=== PATIENT | male | born 1970 | race Caucasian/White ===

== ENCOUNTER 2016-03-03 17:20 | Emergency (ER) | payer OTHER ==
[~2016-03-03] VITALS: Ht 170.2 cm; Wt 67.4 kg
[~2016-03-03 17:20] MED LIST: ANT125 PO; SUMA6INJ IM; VERA240T21 PO
[2016-03-03 17:28] VITALS: TEMP 37; Ht 170.2 cm; Wt 67.4 kg
[2016-03-03] MEDS ORDERED: ACET-1311 PO (17:36)
[2016-03-03] MEDS ORDERED: MoRPHine SULFATE 10 MG/ML CARP/VIAL IM STA (17:57)
[2016-03-03] MEDS ORDERED: KETOROLAC TROMETHAMINE 60 MG/2 ML VIAL IM STA (17:57)
[2016-03-03] MEDS ORDERED: PROMETHAZINE HCL INJ 25 MG/ML 1 ML VIAL IM STA (17:57)
--- NOTE | 2016-03-03 18:03 | EMERGENCY ROOM VISIT NOTE ---
ED Visit Note First contact with patient: 17:35 CHIEF COMPLAINT: Migraine headache since 0100. HISTORY OF PRESENT ILLNESS: Patient is a 45-year-old white male with long- standing history of migraine headaches who presents to emergency department for evaluation of a migraine that started at 1:00 this morning. He states he was laying in bed when it started. He was unable to sleep due to the discomfort. He tried taking Tylenol for his headache without relief. He is out of his Imitrex. He describes a pounding, bitemporal headache that he rates a 10/10. He has associated nausea and photophobia. He denies vomiting. The patient states the migraine is similar to their typical migraines. He denies any recent cold or upper respiratory symptoms, fever or chills. No weakness or numbness of the extremities. There is no difficulty with coordination, balance, speech or vision. No trauma to the head and no neck pain. This is not the worst headache of the life and is similar to previous migraines. Previous imaging studies including CAT scans and MRIs of the brain have been normal. He reports that he recently reestablished insurance and believes that he is scheduled to see Dr. Hope later this month. REVIEW OF SYSTEMS: Review of systems as per HPI. All other systems reviewed were negative. 10 systems reviewed. PMH: Electronic medical records are reviewed and summarized as above/below. See Problem List. SOCIAL HISTORY: Patient is a 44-year-old male who lives at home with family. PHYSICAL EXAM: Vital Signs: Reviewed Nurse's notes. General Appearance: Patient is an uncomfortable-appearing 45-year-old white male who is awake and alert and laying in a darkened room in moderate distress due to his headache. Eyes: Pupils equal round reactive to light extraocular muscles are intact, no proptosis, mild photophobia ENT: Oropharynx is clear, mucous membranes are moist, tympanic membranes are clear bilaterally, no sinus or dental tenderness Neck: Supple, no cervical lymphadenopathy, no meningismus Heart: Regular rate and rhythm, S1 and S2 Lungs: Clear to auscultation bilaterally, no wheezes Rales or rhonchi, no increased work of breathing Abdomen: Soft nontender nondistended. Normal active bowel sounds. No rebound. No guarding. Back: No midline tenderness to palpation. : No CVA tenderness to palpation. Skin: Warm, no diaphoresis, no rashes. Extremities: No cyanosis, clubbing, or edema Neurologic: Patient is awake alert, and oriented x 3. Cranial nerves 2-12 are grossly intact. Motor 5 out of 5 strength bilateral upper extremities and lower extremities. No gross sensory deficits. Reflexes are 2+ throughout. EMERGENCY DEPARTMENT COURSE: The patient was seen and examined as above. His old records are reviewed. He is seen in the emergency department infrequently, he had only 6 visits for migraine headaches last calendar year. He is not on a treatment plan for his migraines. Prior treatment regimens were reviewed. The patient states that he does not like Dilaudid as he states that he feels like when the medication wears off his headache returns and is worse. Patient received 10 mg morphine, 60 mg Toradol, and 25 mg Phenergan intramuscularly which is a regimen that has worked well for him in the past. He was observed in the emergency department for roughly 30 minutes, and reassessed and reported his headache with a 3/10. He felt well enough to be discharged home to rest. He presents today with a migraine that seems typical of his usual migraine phenomenon. He has no worrisome physical exam findings to indicate any further workup including neuro imaging at this time. The differential diagnosis includes acute intracranial bleed, meningitis, encephalitis, mass or mass effect , sinusitis, infection, tumor, headache, temporal arteritis and carbon monoxide exposure, and migraine. The patient was discharged home in stable condition with a family member driving. Problem List Medical Problems: (1) Abdominal pain Status: Resolved (2) Acute exacerbation of chronic low back pain Status: Resolved (3) Acute maxillary sinusitis Status: Resolved (4) CHRONIC SINUSITIS NOS Status: Resolved (5) Hand injury Status: Resolved (6) Headache Status: Resolved (7) Headache Status: Resolved (8) Headache Status: Resolved (9) Infected sebaceous cyst Status: Resolved (10) Lumbago Status: Chronic (11) Migraine Status: Resolved (12) Migraine Status: Resolved (13) Migraine Status: Resolved (14) Migraine Status: Resolved (15) Migraine Status: Resolved (16) Migraine Status: Resolved (17) Migraine Status: Resolved (18) MIGRAINE UNSPECIFIED W/O INTRACT MGRN W/O STATUS MIGRAINOSUS Status: Resolved (19) Migraines Status: Chronic (20) Sinusitis Status: Resolved (21) Sinusitis Status: Resolved (22) Sinusitis Status: Resolved (23) Vertigo Status: Chronic Surgical Problems: (1) History of herniorrhaphy Status: Resolved (2) Hx of oral surgery Status: Resolved (3) S/P cervical spinal fusion Status: Resolved Current/Historical Medications Scheduled Verapamil HCl (Verapamil HCl Cr), 1 TAB PO HS Scheduled PRN Acetaminophen (Tylenol), 650 MG PO Q6H PRN for Pain Meclizine HCl (Meclizine HCl), 12.5 MG PO Q6H PRN for Vertigo Sumatriptan Succinate (Imitrex), 6 MG IM DAILY PRN for Migraine Allergies Coded Allergies: No Known Allergies (Verified , 03/03/16) Vital Signs Date Time Temp Pulse Resp B/P Pulse Ox O2 Delivery O2 Flow Rate FiO2 03/03/16 18:40 55 20 147/89 97 03/03/16 17:28 37.0 61 18 143/71 98 Room Air Medications Administered Medications (Trade) Dose Ordered Sig/Chantale Route Start Time Stop Time Status Last Admin Dose Admin Morphine Sulfate (MoRPHine SULFATE INJ) 10 mg NOW STAT IM 03/03/16 17:57 03/03/16 17:58 DC 03/03/16 18:10 10 MG Ketorolac Tromethamine (Toradol Inj) 60 mg NOW STAT IM 03/03/16 17:57 03/03/16 17:58 DC 03/03/16 18:09 60 MG Promethazine HCl (Phenergan Inj) 25 mg NOW STAT IM 03/03/16 17:57 03/03/16 17:58 DC 03/03/16 18:09 25 MG Departure Information Impression Primary Impression: Headache Referrals No Doctor, Assigned (PCP) Patient Instructions A Signature Page, [facility] Additional Instructions DO NOT drive, drink alcohol, operate machinery, or perform dangerous activities today. You were given medications in the ER that can affect your ability to safely function or operate a vehicle. Rest today in a quiet, peaceful, dark environment and get a full 8-10 hrs of sleep tonight. Avoid loud noises, smoke/smoking, alcohol, bright lights, stress, or physical exertion today to minimize the chance the headache may return. Continue current medications. Ibuprofen(Motrin, Advil) may be used for fever or pain. Use 600mg every six hours as needed. Take with food. Avoid using more than 2400mg in a 24 hour period. Do not use 2400mg per day for more than three consecutive days without physician direction. Prolonged inappropriate use can lead to stomach upset or ulcers. (AND/OR) Acetaminophen(Tylenol) may be used for fever or pain. Use 1000mg every six hours as needed. Avoid using more than 3000mg in a 24 hour period. Return to the ER for passing out, worsening headache, vision problems, neck stiffness/pain, fevers, vomiting, worsening of your condition, or as needed. Follow up with your primary physician in 2-3 days for a recheck of your current condition.
[2016-03-03 18:40] VITALS: BP 147/89; PULSE 55; O2SAT 97
[2016-04-03] MEDS ORDERED: OXYC1TAB3 PO (09:29)
== END 2016-03-03 18:40 | disposition home or self-care (01) ==
LOC: C.EDB 17:21 → C.EDD 18:40
DX: R51 Headache (principal); M54.5 Low back pain; R42 Dizziness and giddiness

== ENCOUNTER 2017-01-10 04:30 | Emergency (ER) | payer OTHER ==
[~2017-01-10] VITALS: Ht 170.2 cm; Wt 70.9 kg
[~2017-01-10 04:30] MED LIST changes: +ACET-1311 PO; +OXYC1TAB3 PO
[2017-01-10 04:41] VITALS: TEMP 36.5; Ht 170.2 cm; Wt 70.9 kg
[2017-01-10] MEDS ORDERED: TRAZ50TA35 PO (05:08)
[2017-01-10] MEDS ORDERED: MECL1TAB40 PO (05:08)
--- NOTE | 2017-01-10 06:36 | EMERGENCY ROOM VISIT NOTE ---
History First contact with patient: 04:43 Chief Complaint: ARM PAIN Stated Complaint: PAIN IN LEFT ARM History of Present Illness The patient is a 46 year old male who presents to the Emergency Room with complaints of left forearm pain and swelling for the past week that is steadily getting worse. He saw the family care doctor and was told it was tendinitis. Patient states the pain is still present and is bothersome to him. Pain is 7 out of 10. Worse with movement and better with rest. It does not radiate. Patient denies chest pain, dyspnea, numbness, tingling, injury to the area, hand pain, elbow pain, fevers, redness. Review of Systems A 6 system review of systems was completed with positives and pertinent negatives listed in the HPI. Past Medical/Surgical History Medical Problems: (1) Abdominal pain (2) Acute exacerbation of chronic low back pain (3) Acute maxillary sinusitis (4) CHRONIC SINUSITIS NOS (5) Hand injury (6) Headache (7) Headache (8) Headache (9) Infected sebaceous cyst (10) Lumbago (11) Migraine (12) Migraine (13) Migraine (14) Migraine (15) Migraine (16) Migraine (17) Migraine (18) MIGRAINE UNSPECIFIED W/O INTRACT MGRN W/O STATUS MIGRAINOSUS (19) Migraines (20) Sinusitis (21) Sinusitis (22) Sinusitis (23) Vertigo Surgical Problems: (1) History of herniorrhaphy (2) Hx of oral surgery (3) S/P cervical spinal fusion (4) Status post left foot surgery Family History Cancer Hypertension Social History Smoking Status: Never Smoker Alcohol Use: none Drug Use: none Marital Status: single Housing Status: lives with family Occupation Status: employed Current/Historical Medications Scheduled Trazodone Hcl (Trazodone), 50 MG PO HS Verapamil HCl (Verapamil HCl Cr), 1 TAB PO HS Scheduled PRN Acetaminophen (Tylenol), 650 MG PO Q6H PRN for Pain Meclizine HCl (Meclizine HCl), 12.5 MG PO Q6 PRN for Dizziness or Vertigo Sumatriptan Succinate (Imitrex), 6 MG IM DAILY PRN for Migraine Physical Exam Vital Signs Date Time Temp Pulse Resp B/P (MAP) Pulse Ox O2 Delivery O2 Flow Rate FiO2 01/10/17 04:41 36.5 75 18 149/101 99 Room Air Physical Exam VITALS: Vitals are noted on the nurse's note and reviewed by myself. Vital signs stable. GENERAL: White male, in no acute distress, nondiaphoretic, well-developed well- nourished. SKIN: Capillary reflex less than 2 seconds. HEENT: Normocephalic. PERRLA. EOMI. Nares patent. Mucous membranes moist. Neck is supple without nuchal rigidity. HEART: Regular rate and rhythm without murmurs gallops or rubs. LUNGS: Clear to auscultation bilaterally without wheezes, rales or rhonchi. No retractions or accessory muscle use. MUSCULOSKELETAL: No gross musculoskeletal defects. There is no deformity of the left wrist. There is no erythema and ecchymosis. There is edema distal radius. Tenderness over distal radius. There is no snuff box tenderness. There is tenderness with flexion, extension, supination, pronation, ulnar deviation, and radial deviation. Range of motion is intact but painful. Courtney +, Phalen's test negative, Tinel's sign negative. There is no tenderness of the hand or fingers. Day Worker strength 4/5. Radial pulse 2+. NEURO: Patient was alert and oriented to person place and time. Normal sensation to light and sharp touch. Deep tendon reflexes 2+ throughout. No focal neurological deficits. Medical Decision & Procedures ED Course Prior records reviewed and summarized above. Triage Nursing notes reviewed. The patient's history was concerning for swelling and pain in the arm Differential diagnosis: Etiologies such as DVT, musculoskeletal, infection, joint effusion, trauma, lymphedema, idiopathic, as well as others were entertained.. Physical examination: The physical examination revealed no signs of infection. Neurovascularly intact. ER treatment provided: splint On reassessment the patient felt better. Diagnostics interpreted by me: Imaging studies: US no DVT Wrist x-ray with no fracture, dislocation or effusion per my interpretation This appears to be consistent with tendinitis of the wrist. Patient was neurovascularly and neurologically intact. No fracture. No DVT. He was placed in a thumb spica Velcro splint and neurovascular status is rechecked after placement and is intact. He was advised to wear this throughout the day and follow-up with orthopedics. He was advised to return to the ER immediately for severe pain, numbness, tingling, worsening signs or symptoms or as needed. By the evaluation outlined above emergent etiologies such as DVT, septic joint, trauma, infection, as well as others were deemed relatively unlikely. The pt informed about the findings as listed above. All questions were answered and pleased with the treatment. Return instructions were outlined and the patient was discharged in stable condition. Referral: The patient was referred back to their primary care physician and ortho for follow-up in 2 to 3 days for a recheck of the current condition. Medical Decision As above [place] Drug Monitoring Program Search Results: patient reviewed within database, see additional documentation (multiple narcotic prescriptions) Medication Reconcilliation Current Medication List: was personally reviewed by me Blood Pressure Screening Patient's blood pressure: Elevated blood pressure Blood pressure disposition: Elevated BP felt to be situational Impression Primary Impression: Tendonitis of wrist, left Departure Information Dispostion Home / Self-Care Condition GOOD Referrals Anatoliy Monsivais M.D. (PCP) Patient Instructions My [email or web address] [facility] Additional Instructions Ibuprofen(Motrin, Advil) may be used for fever or pain. Use 600mg every six hours as needed. Take with food. Avoid using more than 2400mg in a 24 hour period. Do not use 2400mg per day for more than three consecutive days without physician direction. Prolonged inappropriate use can lead to stomach upset or ulcers. This medication can be taken if you need to drive, work, or perform activities which may be dangerous when taking narcotic pain medication. (AND/OR) Acetaminophen(Tylenol) may be used for fever or pain. Use 1000mg every six hours as needed. Avoid using more than 3000mg in a 24 hour period. This medication can be taken if you need to drive, work, or perform activities which may be dangerous when taking narcotic pain medication. Ice compresses for 20 minutes at a time four times daily for 2-3 days. Rest and elevate your injury. Wear a Velcro splint throughout the day. Do not have it so tight that he cannot feel your fingers. Continue current medications. Return to the ER immediately for any numbness, tingling, severe pain, extreme swelling in the extremity or as needed. Call Orthopedics on Thursday to arrange follow up for your injury.
--- NOTE | 2017-01-10 06:40 | DIAGNOSTIC IMAGING REPORT ---
LEFT UPPER EXTREMITY VENOUS DOPPLER HISTORY: pain and swelling COMPARISON STUDY: None. FINDINGS: The left internal jugular vein is patent. There is normal flow within the left subclavian vein. There is normal flow and compressibility within the left axillary, basilic, brachial, radial, ulnar, and visualized cephalic veins. IMPRESSION: No DVT within the left upper extremity. Electronically signed by: Robert Nicolas M.D. 01/10/2017 6:38 AM Dictated Date/Time: 01/10/2017 6:38 AM
[2017-01-10 06:52] VITALS: BP 142/85; PULSE 70; O2SAT 98
--- NOTE | 2017-01-10 07:55 | DIAGNOSTIC IMAGING REPORT ---
LEFT WRIST 5 VIEWS HISTORY: Left wrist pain and swelling COMPARISON: None. FINDINGS: There is no fracture or dislocation. Mild diffuse soft tissue swelling. No radiopaque foreign bodies. IMPRESSION: No fractures. Mild soft tissue swelling. Electronically signed by: Robert Nicolas M.D. 01/10/2017 7:53 AM Dictated Date/Time: 01/10/2017 7:52 AM
== END 2017-01-10 07:12 | disposition home or self-care (01) ==
LOC: C.EDB 04:31
DX: M77.8 Other enthesopathies, not elsewhere classified (principal); M54.5 Low back pain; G89.29 Other chronic pain; G43.909 Migraine, unspecified, not intractable, without status migrainosus; Z82.49 Family history of ischemic heart disease and other diseases of the circulatory system

== ENCOUNTER 2017-03-19 13:51 | Emergency (ER) | payer OTHER ==
[~2017-03-19] VITALS: Ht 170.2 cm; Wt 64.8 kg
[~2017-03-19 13:51] MED LIST changes: -ANT125 PO; +MECL1TAB40 PO; -OXYC1TAB3 PO; +TRAZ50TA35 PO
[2017-03-19 13:57] VITALS: TEMP 36.4; Ht 170.2 cm; Wt 64.8 kg
[2017-03-19] MEDS ORDERED: DiphenhydrAMINE HCL 50 MG/ML VIAL IV STA (14:48)
[2017-03-19] MEDS ORDERED: MoRPHine SULFATE 4 MG/ML 1 ML CARP\\VIAL IV STA (14:48)
[2017-03-19] MEDS ORDERED: PROCHLORPERAZINE 5 MG/ML 2 ML VIAL IV STA ×2 (14:48→15:49)
--- NOTE | 2017-03-19 14:54 | EMERGENCY ROOM VISIT NOTE ---
History First contact with patient: 14:24 Chief Complaint: HEADACHE Stated Complaint: MIGRAINE,SEVERE History of Present Illness 46M with a PMHx of Migraines and chronic back pain p/w a one day history of his typical migraine. The RUIZ is on the right side of his head over his bahai, he describes it as throbbing. Pt got his regular Imitrex shot from his PCP and states that his RUIZ did not go away. Patient states his RUIZ started at 1am, he was still awake when it happened, he denies trauma to the head. Light makes the RUIZ worse. no vomiting, no nausea, no vomiting, no fevers, no tremors, no loss of control of the bladder, pt denies that he is dehydrated. No changes in BM, no changes in urination. PMHx: Chronic back pain (5mg Oxycodone BID) - PDMP reviewed and this is consistent with the Oxycodone Rx'ed in the PDMP. SHx: Unemployed, looking for unemployment. At present his mom is in the hospital. His dad drove him to the hospital. Lives in [place]. Source of History: patient Onset: 1am this AM Position: head (right side over the bahai) Symptom Intensity: severe Quality: pressure Timing: other (throbbing) Modifying Factors (Worsening): other (light) Modifying Factors (Relieving): rest Review of Systems See HPI for pertinent positives and negatives. A total of ten systems were reviewed and were otherwise negative. Past Medical/Surgical History Medical Problems: (1) Abdominal pain (2) Acute exacerbation of chronic low back pain (3) Acute maxillary sinusitis (4) CHRONIC SINUSITIS NOS (5) Hand injury (6) Headache (7) Headache (8) Headache (9) Infected sebaceous cyst (10) Lumbago (11) Migraine (12) Migraine (13) Migraine (14) Migraine (15) Migraine (16) Migraine (17) Migraine (18) MIGRAINE UNSPECIFIED W/O INTRACT MGRN W/O STATUS MIGRAINOSUS (19) Migraines (20) Sinusitis (21) Sinusitis (22) Sinusitis (23) Vertigo Surgical Problems: (1) History of herniorrhaphy (2) Hx of oral surgery (3) S/P cervical spinal fusion (4) Status post left foot surgery Family History Cancer Hypertension Social History Smoking Status: Never Smoker Alcohol Use: none Drug Use: none Marital Status: single Housing Status: lives with family Occupation Status: employed Current/Historical Medications Scheduled Topiramate (Topiramate), 25 MG PO BID Verapamil HCl (Verapamil HCl Cr), 1 TAB PO HS Scheduled PRN Acetaminophen (Tylenol), 650 MG PO Q6H PRN for Pain Meclizine HCl (Meclizine HCl), 12.5 MG PO Q6 PRN for Dizziness or Vertigo Sumatriptan Succinate (Imitrex), 6 MG IM DAILY PRN for Migraine Physical Exam Vital Signs Date Time Temp Pulse Resp B/P (MAP) Pulse Ox O2 Delivery O2 Flow Rate FiO2 03/19/17 15:09 56 20 137/82 95 Room Air 03/19/17 13:57 36.4 64 16 137/82 97 Room Air Physical Exam Gen: No acute distress. Pt has the lights turned off in the room. HEENT: Head - normocephalic and atraumatic. Pupils are equal, round, and reactive to light. Extraocular eye muscles are intact and sclera are anicteric. Nose - moist nasal mucosa without discharge. Mouth - moist buccal mucosa. Oropharynx is nonerythematous and there is no tonsillar exudate or edema noted. Neck: Supple; no JVD, nuchal rigidity, cervical lymphadenopathy, or auscultated bruits. Heart: Regular rate and rhythm. There is a normal S1 and S2 with no murmurs, clicks, or gallops appreciated. Lungs: Clear to auscultation bilaterally with no wheezes, rales, or rhonchi. Abdomen: Soft, completely nontender, nondistended, with good bowel sounds. There are no palpable pulsatile masses or hepatosplenomegaly. There is no guarding, rigidity, or rebound noted. Extremities: No evidence of cyanosis, clubbing, or edema. There are easily palpable peripheral pulses. Neuro:The patient is awake and alert, oriented to day, time, and place. Muscle strength is 5/5 in all 4 extremities. The patient has equal meat and seafood manager strength and equal pedal push and pull. There are no cerebellar signs. Medical Decision & Procedures Medications Administered Medications (Trade) Dose Ordered Sig/Chantale Route Start Time Stop Time Status Last Admin Dose Admin Morphine Sulfate (MoRPHine SULFATE INJ) 4 mg NOW STAT IV 1/25/18 14:48 03/19/17 14:50 DC 03/19/17 15:05 4 MG Sodium Chloride 1,000 ml @ 999 mls/hr Q1H1M IV 03/19/17 15:00 03/19/17 16:00 DC 03/19/17 15:04 999 MLS/HR Prochlorperazine Edisylate (Compazine Inj) 5 mg NOW STAT IV 03/19/17 14:48 03/19/17 14:50 DC 03/19/17 15:05 5 MG Diphenhydramine HCl (Benadryl Inj) 12.5 mg NOW STAT IV 03/19/17 14:48 03/19/17 14:50 DC 03/19/17 15:05 12.5 MG Prochlorperazine Edisylate (Compazine Inj) 5 mg NOW STAT IV 03/19/17 15:49 03/19/17 15:52 DC 03/19/17 15:49 5 MG Medical Decision The patient's care and disposition was discussed with Dr. Smart, Attending ED Physician. This is a 46M with a RUIZ. Differential diagnosis include headache, tension headache, cluster headache, migraine, subarachnoid hemorrhage, meningitis, mass , central venous thrombus, concussion, trauma and epidural/subdural hemorrhage. Triage Nursing notes were reviewed. ED Course included an extensive history and physical exam. 2:30 - Pt was seen and examined and initial orders were placed. 1L NSS bolus 4mg IV Morphine 5mg Compazine IV 10mg Benadryl IV 2:55 - Case was discussed with Dr. Smart. 3:15 - Pt examined he was still having some symptoms, 5mg additional Compazine was ordered. 4:00 - Patient was evaluated to be in good condition and was cleared for discharge. The pt was informed about the findings as listed above. All questions were answered. Return instructions were outlined and the patient was discharged in good condition. The patient was referred to PCP for recheck of the current condition. Impression Primary Impression: Migraine Departure Information Dispostion Home / Self-Care Condition GOOD Referrals Anatoliy Monsivais M.D. (PCP) Patient Instructions ED Headache Migraine, Headache Migraine Triggers Prevent, Migraine Stages Tx, My [facility] Additional Instructions You are being diagnosed with a migraine. Information about migraines will be printed for you. Please read this information carefully. Please follow up with your PCP in one week. Resident Involvement: Resident Care Provided Care Provided: Adult ED
[2017-03-19] MEDS ORDERED: SODIUM CHLORIDE 0.9% 1000ML 1,000 ML IV SCH (15:00)
--- NOTE | 2017-03-19 15:15 | EMERGENCY ROOM VISIT NOTE ---
ED Visit Note First contact with patient: 14:24 Resident Physician Supervision Note: I was present with Dr. Roque during the history and exam. I discussed the case with the resident and agree with the findings and plan as documented in the note. Documented By: Jose Smart
[2017-03-19] MEDS ORDERED: TPM25 PO (15:56)
[2017-03-19 16:44] VITALS: BP 117/72; PULSE 60; O2SAT 97
== END 2017-03-19 16:49 | disposition home or self-care (01) ==
LOC: C.EDB 13:52 → C.EDA 16:49
DX: G43.909 Migraine, unspecified, not intractable, without status migrainosus (principal); M54.5 Low back pain; G89.29 Other chronic pain; J32.9 Chronic sinusitis, unspecified; Z82.49 Family history of ischemic heart disease and other diseases of the circulatory system